=== PATIENT | female | born 1960 | race Asian ===

== ENCOUNTER 2023-12-13 23:09 | Emergency (ER) | payer BC ==
[~2023-12-13] VITALS: Ht 152.4 cm; Wt 50.8 kg
[2023-12-13 23:16] VITALS: BP 153/85; PULSE 75; RESP 20; TEMP 97.4; O2SAT 98
[2023-12-13 23:20] VITALS: O2SAT 98
[2023-12-14] MEDS: GLYCERIN ADULT 1 SUPP RC ONE (00:18)
[2023-12-14] MEDS: KETOROLAC 30 MG/ML VIAL IM ONE (01:35)
[2023-12-14] MEDS ORDERED: SENN1TAB80 PO (01:48)
[2023-12-14] MEDS ORDERED: MAGN296S70 PO (01:48)
[2023-12-14 02:46] VITALS: BP 133/76; PULSE 71; RESP 16; TEMP 97.4; O2SAT 98
== END 2023-12-14 02:46 | disposition home or self-care (01) ==
LOC: MED 23:09
DX: K56.41 Fecal impaction (principal); Z98.890 Other specified postprocedural states; Z79.899 Other long term (current) drug therapy
CPT/HCPCS: 74018; 96372; 99284; J1885; Q0092